=== PATIENT | female | born 1950 | race Caucasian/White ===

== ENCOUNTER 2021-06-02 09:19 | Outpatient (CLI) | payer MEDICARE | END 2021-06-02 09:20 | disposition home or self-care (01) | LOC: CSHRAD 09:19 | PROVIDERS: ATTEND Family Medicine | DX: R05.9 Cough, unspecified (principal) | CPT/HCPCS: 71046 ==

== ENCOUNTER 2021-10-22 15:35 | Outpatient (CLI) | payer MEDICARE | END 2021-10-22 15:36 | disposition home or self-care (01) | LOC: CSHRAD 15:35 | PROVIDERS: ATTEND Family Medicine | DX: R05.9 Cough, unspecified (principal) | CPT/HCPCS: 71046 ==

== ENCOUNTER 2021-11-04 12:54 | Outpatient (CLI) | payer MEDICARE | END 2021-11-04 12:55 | disposition home or self-care (01) | LOC: CSHMAMMO 12:54 | PROVIDERS: ATTEND Family Medicine | DX: N63.20 Unspecified lump in the left breast, unspecified quadrant (principal) | CPT/HCPCS: 76642; 77066; G0279 ==

== ENCOUNTER 2022-04-09 10:55 | Emergency (ER) | payer MEDICARE ==
[2022-04-09 11:23] LABS: #Basophils 0.1 10x3/uL (0.0-0.2); #Monocytes 0.6 10x3/uL (0.0-1.1); #Neutrophils 2.3 10x3/uL (1.5-8.4); %Basophils 1.9 % (0.0-2.0); %Eosinophils 20.9 % (0.0-6.0); %Lymphocytes 17.1 % (18.0-47.0); %Monocytes 11.8 % (0.0-10.0); %Neutrophils 48.1 % (40.0-75.0); Hemoglobin 11.6 g/dL (12.0-15.5); Mean Corpuscular HGB CONC 32.4 g/dL (32.0-36.0); Mean Corpuscular Volume 86.3 fl (81.6-98.3); Mean Platelet Volume 9.2 fl (7.4-10.4); Platelet Count 466 10x3/uL (150-450); RBC Distribution Width 13.9 % (11.5-14.5); Red Blood Cell (RBC) Count 4.15 10x6/uL (3.90-5.03); White Blood Cell (WBC) Count 4.7 10x3/uL (3.5-10.5)
[2022-04-09 11:36] LABS: PTT 27.7 sec (22.0-33.0); Prothrombin Time 10.9 sec (9.5-12.1)
[2022-04-09 11:43] LABS: ALT (SGPT) 21 U/L (8-55); AST (SGOT) 26 U/L (5-34); Albumin 3.6 g/dL (3.4-4.8); Alkaline Phosphatase 100 U/L (40-110); Anion Gap 13 mmol/L (10-20); BUN (Urea Nitrogen) 13 mg/dL (9.8-20.1); Bilirubin, Total 0.3 mg/dL (0.2-1.2); Calc. Creatinine Clearance 0 mL/min (70-130); Calcium 9.2 mg/dL (7.8-10.44); Carbon Dioxide 26 mmol/L (23-31); Chloride 104 mmol/L (98-107); Estimated GFR 62; Globulin 4.2 g/dL (2.4-3.5); Glucose 119 mg/dL (83-110); Potassium 3.9 mmol/L (3.5-5.1); Protein, Total 7.8 g/dL (5.8-8.1); Sodium 139 mmol/L (136-145)
[2022-04-09] MEDS ORDERED: Dexamethasone 10 MG/ML VIAL ONE (11:54)
[2022-04-09] MEDS ORDERED: Iopamidol 370 76% 100 ML VIAL ONE (12:24)
[2022-04-09 12:47] LABS: SARS-CoV-2 NAA Rapid Test Not Detected (NotDetected)
== END 2022-04-09 14:49 | disposition home or self-care (01) ==
LOC: CSHERS 10:55
DX: R06.02 Shortness of breath (principal); R06.2 Wheezing; Z20.822 Contact with and (suspected) exposure to COVID-19
CPT/HCPCS: 0241U; 70491; 71275; 80053; 83605; 83880; 84484; 85025; 85610; 85730; 87040; 93005; 94640; 94760; 96374; 99285; 36415; J1100; J7620; Q9967

== ENCOUNTER 2022-05-12 09:29 | Outpatient (CLI) | payer MEDICARE | END 2022-05-12 09:30 | disposition home or self-care (01) | LOC: CSHRAD 09:29 | PROVIDERS: ATTEND Family Medicine | DX: J18.9 Pneumonia, unspecified organism (principal) | CPT/HCPCS: 71046 ==

== ENCOUNTER 2022-06-07 08:50 | Emergency (ER) | payer MEDICARE ==
[2022-06-07] MEDS ORDERED: Ipratropium/Albuterol 3 ML NEB ONE ×3 (09:06→11:05)
[2022-06-07 09:30] LABS: #Basophils 0.1 10x3/uL (0.0-0.2); #Eosinphils 0.7 10x3/uL (0.0-0.5); #Monocytes 0.6 10x3/uL (0.0-1.1); %Basophils 1.1 % (0.0-2.0); %Eosinophils 13.8 % (0.0-6.0); %Lymphocytes 17.4 % (18.0-47.0); %Monocytes 10.8 % (0.0-10.0); %Neutrophils 56.7 % (40.0-75.0); Hemoglobin 12.2 g/dL (12.0-15.5); Mean Corpuscular HGB CONC 33.1 g/dL (32.0-36.0); Mean Corpuscular Volume 84.6 fl (81.6-98.3); Mean Platelet Volume 9.6 fl (7.4-10.4); Platelet Count 259 10x3/uL (150-450); Red Blood Cell (RBC) Count 4.36 10x6/uL (3.90-5.03); White Blood Cell (WBC) Count 5.3 10x3/uL (3.5-10.5)
[2022-06-07] MEDS ORDERED: Magnesium 2 GM/50 ML BAG (IN WATER) ONE (09:39)
[2022-06-07] MEDS ORDERED: predniSONE 20 MG TAB ONE (09:39)
[2022-06-07 09:50] LABS: ALT (SGPT) 14 U/L (8-55); AST (SGOT) 24 U/L (5-34); Albumin 3.7 g/dL (3.4-4.8); Alkaline Phosphatase 82 U/L (40-110); Anion Gap 13 mmol/L (10-20); BUN (Urea Nitrogen) 23 mg/dL (9.8-20.1); Bilirubin, Total 0.6 mg/dL (0.2-1.2); Calc. Creatinine Clearance 0 mL/min (70-130); Carbon Dioxide 24 mmol/L (23-31); Chloride 107 mmol/L (98-107); Estimated GFR 48; Glucose 117 mg/dL (83-110); Potassium 4.5 mmol/L (3.5-5.1); Protein, Total 6.7 g/dL (5.8-8.1); Sodium 139 mmol/L (136-145)
[2022-06-07 10:07] LABS: Magnesium 1.6 mg/dL (1.6-2.6)
[2022-06-07 10:14] LABS: Bilirubin Neg (Negative); Blood, Urine Negative (Negative); Clarity Clear (Clear); Glucose, Urine (Dipstick) Normal (Negative); Ketone, Urine Negative (Negative); Leukocyte 25 (Negative); Nitrite Negative (Negative); Protein, Urine (Dipstick) Negative (Neg-Trace); Urobilinogen Normal mg/dL (Less than 2)
[2022-06-07 10:38] LABS: Bacteria/HPF None Seen HPF (None Seen); RBC/HPF None Seen HPF (0-3); Squamous Epithelial None Seen HPF (0-3); WBC/HPF None Seen HPF (0-3)
[2022-06-07 10:51] LABS: SARS-CoV-2 NAA Rapid Test Not Detected (NotDetected)
== END 2022-06-07 11:51 | disposition home or self-care (01) ==
LOC: CSHERS 08:50
DX: J18.9 Pneumonia, unspecified organism (principal); J45.901 Unspecified asthma with (acute) exacerbation; Z20.822 Contact with and (suspected) exposure to COVID-19
CPT/HCPCS: 0240U; 71045; 80053; 83735; 83880; 84484; 85025; 93005; 94640 ×2; 94760; 81003; 81015; 96365; 96366; J3475; J7512; J7620

== ENCOUNTER 2022-07-28 09:02 | Outpatient (CLI) | payer MEDICARE | END 2022-07-28 09:03 | disposition home or self-care (01) | LOC: CSHCP 09:02 | PROVIDERS: ATTEND Internal Medicine Critical Care Medicine | DX: J45.40 Moderate persistent asthma, uncomplicated (principal) | CPT/HCPCS: 94060; 94726; 94729; 94760 ==

== ENCOUNTER 2023-09-26 10:28 | Outpatient (CLI) | payer MEDICARE | END 2023-09-26 10:29 | disposition home or self-care (01) | LOC: CSHRAD 10:28 | PROVIDERS: ATTEND Family Medicine | DX: R05.9 Cough, unspecified (principal); R91.8 Other nonspecific abnormal finding of lung field | CPT/HCPCS: 71046 ==

== ENCOUNTER 2023-09-27 10:09 | Outpatient (CLI) | payer MEDICARE ==
[2023-09-27] MEDS ORDERED: Iopamidol 300 61% 100 ML VIAL FS ONE (10:28)
== END 2023-09-27 10:10 | disposition home or self-care (01) ==
LOC: CSHCT 10:09
PROVIDERS: ATTEND Family Medicine
DX: R91.8 Other nonspecific abnormal finding of lung field (principal); J98.11 Atelectasis
CPT/HCPCS: 71260; 82565

== ENCOUNTER 2024-12-19 12:40 | Outpatient (CLI) | payer MEDICARE ==
[2024-12-19 14:17] LABS: Estimated GFR - POC 43.0
== END 2024-12-19 12:41 | disposition home or self-care (01) ==
LOC: CSHMAMMO 12:40
PROVIDERS: ATTEND Radiology Radiation Oncology
DX: Z08 Encounter for follow-up examination after completed treatment for malignant neoplasm (principal); Z85.3 Personal history of malignant neoplasm of breast; Z98.890 Other specified postprocedural states
CPT/HCPCS: 36415; 76376; 77066; 82565 ×2; C8908; G0279

== ENCOUNTER 2025-02-01 10:29 | Outpatient (CLI) | payer MEDICARE | END 2025-02-01 10:30 | disposition home or self-care (01) | LOC: CSHRAD 10:29 | PROVIDERS: ATTEND Family Medicine | DX: M25.561 Pain in right knee (principal); M17.11 Unilateral primary osteoarthritis, right knee ==

== ENCOUNTER 2025-03-18 15:04 | Outpatient (CLI) | payer MEDICARE | END 2025-03-18 15:05 | disposition home or self-care (01) | LOC: CSHULT 15:04 | PROVIDERS: ATTEND Internal Medicine Nephrology | DX: N18.30 Chronic kidney disease, stage 3 unspecified (principal); Z90.5 Acquired absence of kidney | CPT/HCPCS: 76770 ==